=== PATIENT | female | born 1975 | race American Indian/Alaskan Native ===

== ENCOUNTER 2016-07-09 17:33 | Emergency (ER) | payer SELFPAY ==
--- NOTE | 2016-07-09 17:56 | Emergency Department Report ---
Chief Complaint: Abdominal Pain Stated Complaint: ABD PAIN Time Seen by Provider: 07/09/16 17:51 - HPI History of Present Illness: 41 y/o female complain of abdominal pain x 3 days .pt denies any n/v/d /.denies any dysuria. Denies alcohol consumption.denies any prior medication .denies any prior injury . - ROS Review of Systems: per HPI - Exam Vital Signs: Vital Signs 07/09/16 17:38 Temperature 99.0 F Pulse Rate 64 Respiratory 18 Rate Blood Pressure 132/88 O2 Sat by Pulse 97 Oximetry Physical Exam: GENERAL: The patient is well-developed and well-nourished. Patient is in NAD. HENT: Normocephalic. Atraumatic. Patient has moist mucous membranes. Throat: No erythema, swelling or exudates. EYES: Extraocular motions are intact, PERRL NECK: Supple. No meningitic signs are noted. There is no adenopathy noted. CHEST/LUNGS: Clear to auscultation bilaterally. No wheezing, rales or rhonchi noted. There is no respiratory distress noted. HEART/CARDIOVASCULAR: Regular rate and rhythm. Normal S1 S2. No murmurs, rubs , clicks, or gallops. ABDOMEN: Abdomen is soft, nontender.. Bowel sounds normoactive. There is no abdominal distention. Negative rebound tenderness. : Deferred. SKIN: There is no rash. There is no edema. There is no diaphoresis. NEURO: The patient is A&Ox3. The patient has no focal neurologic deficits. MUSCULOSKELETAL: There is no tenderness or deformity. There is no limitation range of motion. PSYCH: Pt has appropriate mood and affect. MSE screening note: Focused history and physical exam performed. Due to findings the following was ordered: ED Disposition for MSE Condition: Stable Instructions: Abdominal Pain (ED)
[2016-07-09 18:38] LABS: Basophils % (Auto) 1.5 % (0.0-1.8); Eosinophils % (Auto) 0.8 % (0.0-4.3); Hematocrit 38.6 % (30.3-42.9); Hemoglobin 12.9 gm/dl (10.1-14.3); Mean Corpuscular HGB Conc 34 % (30-34); Mean Corpuscular Hemoglobin 31 pg (28-32); Mean Corpuscular Volume 92 fl (79-97); Platelet Count 151 K/mm3 (140-440); Red Blood Count 4.21 M/mm3 (3.65-5.03); Red Cell Distribution Width 14.8 % (13.2-15.2); White Blood Count 5.4 K/mm3 (4.5-11.0)
[2016-07-09 19:03] LABS: BUN/Creatinine Ratio 18.88; Blood Urea Nitrogen 17 mg/dL (7-17); Calcium 9.2 mg/dL (8.4-10.2); Carbon Dioxide 27 mmol/L (22-30); Chloride 104.8 mmol/L (98-107); Glucose 105 mg/dL (65-100); Lipase 37 units/L (13-60); Potassium 4.2 mmol/L (3.6-5.0); Sodium 144 mmol/L (137-145)
[2016-07-09 19:14] LABS: Anion Gap 16 mmol/L
[2016-07-09 19:32] VITALS: BP 114/67
[2016-07-09 20:04] LABS: Bacteria,Urine 2+ /HPF (Negative); Bilirubin,Urine NEG (Negative); Blood,Urine SM (Negative); Ketones,Urine NEG (Negative); Leukocyte Esterase,Urine TR (Negative); Mucus,Urine 1+ /HPF; Nitrite,Urine POS (Negative); Protein,Urine <15 mg/dL mg/dL (Negative); Urobilinogen,Urine < 2.0 mg/dL (<2.0)
[2016-07-09] MEDS ORDERED: ZOFRAN ODT PO ONE (20:22)
[2016-07-09] MEDS ORDERED: DILAUDID IM ONE (20:22)
--- NOTE | 2016-07-09 20:28 | Emergency Department Report ---
HPI - General Chief Complaint: Abdominal Pain Time Seen by Provider: 07/09/16 19:49 - HPI HPI: The patient is a 41-year-old female with a history of partial hysterectomy, removal of ovaries, who presents for evaluation of abdominal pain. The patient reports left lower quadrant abdominal pain for the past 3 days, 8 out of 10 in severity, crampy in quality, constant since this morning. She shares that she has experienced multiple episodes of similar pain in previous years. The patient denies fever, chills, night sweats, diarrhea, blood in the stool, dark tarry stool, dysuria, hematuria, flank pain, genital discharge, inability to pass flatus. ED Past Medical Hx - Past Medical History Previous Medical History?: No - Surgical History Additional Surgical History: hysterectomy(parital) - Social History Smoking Status: Current Every Day Smoker Substance Use Type: None - Medications Home Medications: Home Medications Medication Instructions Recorded Confirmed Last Taken Type HYDROcodone/APAP 7.5-325 [[place] 1 each PO Q8HR PRN #10 tablet 07/09/16 Unknown Rx 7.5-325 mg TAB] Ibuprofen [Motrin] 800 mg PO Q8HR PRN #14 tablet 07/09/16 Unknown Rx Ondansetron [Zofran TAB] 4 mg PO Q8HR PRN #14 tablet 07/09/16 Unknown Rx ED Review of Systems ROS: Stated complaint: ABD PAIN Other details as noted in HPI Constitutional: denies: fever ENT: denies: throat or neck pain Respiratory: denies: cough, shortness of breath Cardiovascular: denies: chest pain Endocrine: denies unexplained weight loss or gain Gastrointestinal: reports abdominal pain, nausea Genitourinary: denies: dysuria Musculoskeletal: denies: leg swelling Skin: denies: rash Neurological: denies: headache Hematological/Lymphatic: denies: easy bleeding or easy bruising Psych: denies sadness or hopelessness Physical Exam - Physical Exam Vital Signs: Vital Signs 07/09/16 07/09/16 07/09/16 17:38 19:29 19:33 Temperature 99.0 F 98.4 F Pulse Rate 64 67 Respiratory 18 18 14 Rate Blood Pressure 132/88 Blood Pressure 114/67 [Right] O2 Sat by Pulse 97 100 99 Oximetry Physical Exam: General: well-nourished, well-developed, no acute distress Head: Normocephalic, atraumatic Eyes: normal sclera ENT: Mucous membranes are pink and moist Neck: trachea midline, neck supple, No neck stiffness, no cervical adenopathy Respiratory: Breath sounds equal bilaterally, no wheezing, rales, or rhonchi Cardio: S1 and S2 present, no murmurs, rubs, gallops, capillary refill is brisk Abdomen: Normoactive bowel sounds, soft abdomen, LLQ tenderness to palpation present, no rigidity, no guarding or rebound tenderness Chest WALL/Back: No tenderness to palpation of the chest wall, no CVA tenderness with percussion Musc: No pitting edema Skin: No rash Neuro: no facial drooping, normal speech Psych: Normal affect ED Course Vital Signs 07/09/16 07/09/16 07/09/16 17:38 19:29 19:33 Temperature 99.0 F 98.4 F Pulse Rate 64 67 Respiratory 18 18 14 Rate Blood Pressure 132/88 Blood Pressure 114/67 [Right] O2 Sat by Pulse 97 100 99 Oximetry ED Medical Decision Making - Lab Data Result diagrams: 07/09/16 18:22 07/09/16 18:22 - Medical Decision Making The patient was seen and examined by myself. The patient is placed on a security monitor and continuous pulse ox. On initial evaluation, the patient was found to be in no distress. Evaluation orders are placed. The patient is given an IM dose of Dilaudid for pain. Lab results were non-concerning including WBC, hemoglobin, hematocrit, electrolytes, renal function, LFTs, lipase, and urinalysis. The patient was reevaluated and reported that their symptoms were markedly improved. The patient is stable for discharge with outpatient follow- up. The patient is given follow-up and return instructions. The patient expressed understanding and agreed with the plan. The patient is discharged in stable condition. Critical care attestation.: If time is entered above; I have spent that time in minutes in the direct care of this critically ill patient, excluding procedure time. ED Disposition Clinical Impression: Acute abdominal pain in left lower quadrant Disposition: DISCHARGED TO HOME OR SELFCARE Is pt being admited?: No Does the pt Need Aspirin: No Condition: Stable Instructions: Abdominal Pain (ED) Referrals: PRIMARY CARE, [Primary Care Provider] - 3-5 Days Time of Disposition: 20:08
== END 2016-07-09 22:44 | disposition home or self-care (01) ==
LOC: ED 17:33
DX: R10.32 Left lower quadrant pain (principal); F17.200 Nicotine dependence, unspecified, uncomplicated
CPT/HCPCS: 36415; 80048; 81001; 82150; 83690; 84702; 85025; 96372; 99284; J1170; Q0162